=== PATIENT | female | born 1990 | race American Indian/Alaskan Native ===

== ENCOUNTER 2019-10-05 19:04 | Emergency (ER) | payer MEDICAID ==
--- NOTE | 2019-10-05 20:50 | Emergency Department Report ---
ED ENT HPI - General Chief complaint: Earache Stated complaint: LEFT EAR ACHE Time Seen by Provider: 10/05/19 20:42 Source: patient Mode of arrival: Ambulatory Limitations: No Limitations - History of Present Illness Initial comments: This is a 28-year-old [place] female who presents with left ear pain 1 week described as 05/05.Pain is exacerbated by movement , there is no throat pain, no headache or dizziness ,no nausea /vomiting, patient does have history of recurring AOM. MD complaint: ear pain Onset/Timin -: week(s) Location: L ear Severity: moderate Severity scale (0 -10): 6 Quality: aching Consistency: constant Improves with: none Worsens with: movement Associated Symptoms: fever, discharge from ear, rhinorrhea - Related Data Previous Rx's Medication Instructions Recorded Last Taken Type Amoxicillin/Potassium Clav 1 each PO BID 10 Days #20 tablet 10/05/19 Unknown Rx [Augmentin 875-125 Tablet] Ciprofloxacin HCl/Dexameth 4 drop TP BID 10 Days #7.5 ml 10/05/19 Unknown Rx [Ciprodex Otic Suspension] Ibuprofen [Motrin 800 MG tab] 800 mg PO Q8HR PRN #30 tablet 10/05/19 Unknown Rx ED Dental HPI - General Chief complaint: Earache Stated complaint: LEFT EAR ACHE Time Seen by Provider: 10/05/19 20:42 Source: patient Mode of arrival: Ambulatory Limitations: No Limitations - Related Data Previous Rx's Medication Instructions Recorded Last Taken Type Amoxicillin/Potassium Clav 1 each PO BID 10 Days #20 tablet 10/05/19 Unknown Rx [Augmentin 875-125 Tablet] Ciprofloxacin HCl/Dexameth 4 drop TP BID 10 Days #7.5 ml 10/05/19 Unknown Rx [Ciprodex Otic Suspension] Ibuprofen [Motrin 800 MG tab] 800 mg PO Q8HR PRN #30 tablet 10/05/19 Unknown Rx ED Review of Systems ROS: Stated complaint: LEFT EAR ACHE Other details as noted in HPI Constitutional: denies: chills, fever Eyes: denies: eye pain, eye discharge, vision change ENT: ear pain, congestion. denies: throat pain Respiratory: denies: cough, shortness of breath, wheezing Cardiovascular: denies: chest pain, palpitations Endocrine: no symptoms reported Gastrointestinal: denies: abdominal pain, nausea, diarrhea Genitourinary: denies: urgency, dysuria, discharge Musculoskeletal: denies: back pain, joint swelling, arthralgia Skin: denies: rash, lesions Neurological: denies: headache, weakness, paresthesias Psychiatric: denies: anxiety, depression Hematological/Lymphatic: denies: easy bleeding, easy bruising ED Past Medical Hx - Medications Home Medications: Home Medications Medication Instructions Recorded Confirmed Last Taken Type Amoxicillin/Potassium Clav 1 each PO BID 10 Days #20 tablet 10/05/19 Unknown Rx [Augmentin 875-125 Tablet] Ciprofloxacin HCl/Dexameth 4 drop TP BID 10 Days #7.5 ml 10/05/19 Unknown Rx [Ciprodex Otic Suspension] Ibuprofen [Motrin 800 MG tab] 800 mg PO Q8HR PRN #30 tablet 10/05/19 Unknown Rx ED Physical Exam - General Limitations: No Limitations General appearance: alert - Head Head exam: Present: atraumatic, normocephalic - Eye Eye exam: Present: normal appearance, PERRL, EOMI. Absent: conjunctival injection, nystagmus Pupils: Present: normal accommodation - ENT ENT exam: Present: mucous membranes moist - Expanded ENT Exam Expanded Ear exam: Present: normal external inspection TM/Canal exam: Erythema: Left TM, Canal Discharge: Left TM, Canal Tenderness: Left TM Throat exam: Positive: normal inspection, other (uvula midline no stridor ). Negative: tonsillar erythema, tonsillomegaly, tonsillar exudate, R peritonsillar mass, L peritonsillar mass - Neck Neck exam: Present: normal inspection, full ROM, lymphadenopathy. Absent: tenderness, meningismus, thyromegaly - Respiratory Respiratory exam: Present: normal lung sounds bilaterally. Absent: respiratory distress, wheezes, stridor, chest wall tenderness - Cardiovascular Cardiovascular Exam: Present: regular rate, normal rhythm, normal heart sounds. Absent: systolic murmur, diastolic murmur, rubs, gallop - GI/Abdominal GI/Abdominal exam: Present: soft, normal bowel sounds - Rectal Rectal exam: Present: deferred - Extremities Exam Extremities exam: Present: normal inspection - Back Exam Back exam: Present: normal inspection, full ROM. Absent: tenderness - Neurological Exam Neurological exam: Present: alert, oriented X3, CN II-XII intact, normal gait - Psychiatric Psychiatric exam: Present: normal affect, normal mood - Skin Skin exam: Present: warm, dry, intact, normal color. Absent: rash ED Course Vital Signs 10/05/19 19:24 Temperature 99.0 F Pulse Rate 87 Respiratory 18 Rate Blood Pressure 122/57 O2 Sat by Pulse 97 Oximetry ED Medical Decision Making - Medical Decision Making this is straight forward aom, with oe, plan: augmentin, ibuprofen, ciprodex follow up with ent for recurrent aom. pt verbalized agreement and understanding of same, dc'd to home in stable condition at this time. Critical care attestation.: If time is entered above; I have spent that time in minutes in the direct care of this critically ill patient, excluding procedure time. ED Disposition Clinical Impression: AOM (acute otitis media) Qualifiers: Otitis media type: serous Laterality: left Recurrence: recurrent Qualified Code(s): H65.05 - Acute serous otitis media, recurrent, left ear Otitis externa Qualifiers: Otitis externa type: unspecified type Chronicity: acute Laterality: left Qualified Code(s): H60.502 - Unspecified acute noninfective otitis externa, left ear Disposition: DC-01 TO HOME OR SELFCARE Is pt being admited?: No Does the pt Need Aspirin: No Condition: Stable Instructions: Otitis Media (ED), Otitis Externa (ED) Prescriptions: Amoxicillin/Potassium Clav [Augmentin 875-125 Tablet] 1 each PO BID 10 Days #20 tablet Ciprofloxacin HCl/Dexameth [Ciprodex Otic Suspension] 4 drop TP BID 10 Days #7.5 ml Ibuprofen [Motrin 800 MG tab] 800 mg PO Q8HR PRN #30 tablet PRN Reason: pain fever Referrals: SUKUMAR MOLINA MD [Staff Physician] - 3-5 Days Forms: Work/School Release Form(ED) Time of Disposition: 20:53
[2019-10-05 21:48] VITALS: BP 119/67
== END 2019-10-05 21:45 | disposition home or self-care (01) ==
LOC: ED 19:04
DX: H65.05 Acute serous otitis media, recurrent, left ear (principal); H60.502 Unspecified acute noninfective otitis externa, left ear; Z79.1 Long term (current) use of non-steroidal anti-inflammatories (NSAID); Z79.899 Other long term (current) drug therapy
CPT/HCPCS: 99282